=== PATIENT | female | born 1990 | race Two or more races ===

== ENCOUNTER 2020-10-10 17:12 | Emergency (ER) | payer SELFPAY ==
[~2020-10-10] VITALS: Ht 160 cm; Wt 94.7 kg
[2020-10-10] MEDS ORDERED: ACETAMINOPHEN 500 MG TABLET PO ONE (19:00)
[2020-10-10 19:29] LABS: BASO % 0 % (0-3); EOS % 0 % (0-3); HEMATOCRIT 32.3 % (36.0-47.0); HEMOGLOBIN 10.8 g/dL (12.0-15.5); LYMPH % 19 % (24-48); MEAN CORPUSCULAR HEMOGLOBIN 28 pg (25-35); MEAN CORPUSCULAR HGB CONC 33 g/dL (31-37); MEAN CORPUSCULAR VOLUME 84 fL (79-100); MONO # 0.3 x10^3/uL (0.0-1.1); MONO % 5 % (0-9); NEUT # 4.3 x10^3/uL (1.8-7.7); NEUT % 76 % (31-73); PLATELET COUNT 187 x10^3/uL (140-400); RED BLOOD COUNT 3.83 x10^6/uL (3.50-5.40); RED CELL DISTRIBUTION WIDTH 15.3 % (11.5-14.5); WHITE BLOOD COUNT 5.7 x10^3/uL (4.0-11.0)
[2020-10-10 19:30] LABS: INFLUENZA A PATIENT NEGATIVE (NEGATIVE); INFLUENZA B PATIENT NEGATIVE (NEGATIVE)
[2020-10-10 19:38] LABS: CALCIUM 8.3 mg/dL (8.5-10.1); CREATININE 0.7 mg/dL (0.6-1.0); GFR 97.6; POTASSIUM 3.7 mmol/L (3.5-5.1)
[2020-10-10 19:43] LABS: ALBUMIN 2.2 g/dL (3.4-5.0); ALBUMIN/GLOBULIN RATIO 0.4 (1.0-1.7); TOTAL BILIRUBIN 0.6 mg/dL (0.2-1.0); TOTAL PROTEIN 7.1 g/dL (6.4-8.2)
--- NOTE | 2020-10-10 19:45 | RAD ---
EXAMINATION: XR CHEST 1V CLINICAL HISTORY: Shortness of breath EXAM DATE/TIME: 10/10/2020 7:11 PM COMPARISON: None FINDINGS: Lines, Tubes, and Devices: None. Cardiomediastinal Silhouette: Normal heart size. Lungs and Pleura: Pulmonary hypoexpansion with reticular and patchy opacities in the bilateral mid to lower lung zones. No evidence of pleural effusion or pneumothorax. Bones and Soft Tissues: No acute osseous abnormality. IMPRESSION: Bilateral interstitial and alveolar opacities concerning for infection, including atypical or viral p neumonia. Electronically signed by: Baljeet Allen DO (10/10/2020 7:43 PM) [facility]
[2020-10-10 19:56] LABS: CLARITY,URINE CLEAR; COLOR,URINE ORANGE
[2020-10-10 20:05] LABS: BACTERIA,URINE MODERATE /HPF (0-FEW); RBC,URINE 0 /HPF (0-2)
[2020-10-10 20:44] VITALS: BP 95/53
--- NOTE | 2020-10-10 20:58 | PHYS DOC ---
Past Medical History Past Medical History: Other Additional Past Medical Histor: GESTATIONAL DIABETES Past Surgical History: No Surgical History Smoking Status: Never Smoker Alcohol Use: None General Adult EDM: Chief Complaint: MULTIPLE COMPLAINTS HPI: HPI: Patient is a 30 year old female presents to the emergency department complaining of sore throat with cough and fevers at home. Patient states she is currently and due on 18 October 2020. Patient states she has a patient of Dr. Tong. Patient states that she has gestational diabetes and takes Metformin 500 mg nightly. Other than that she only takes as needed Tylenol and a multivitamin. Patient states that her fears she has the Covid virus, patient states she is due to have a Covid virus test tomorrow. Patient denies any chest pains, chest discomfort, abdominal pain, nausea, vomiting, or diarrhea. Patient states she can still feel the baby move and is not worried about the health or wellbeing of the baby at this time. Patient denies any allergies to medications. Patient states that she takes her blood sugars each morning and it was 207 this morning. Patient denies any other physical complaints or physical ailments today. Review of Systems: Review of Systems: 14 body systems of review of systems have been reviewed. See HPI for pertinent positives and negative responses, otherwise all other systems are negative, nonpertinent or noncontributory. Heart Score: Risk Factors: Risk Factors: DM, Current or recent (<one month) smoker, HTN, HLP, family history of CAD, obesity. Risk Scores: Score 0 - 3: 2.5% MACE over next 6 weeks - Discharge Home Score 4 - 6: 20.3% MACE over next 6 weeks - Admit for Clinical Observation Score 7 - 10: 72.7% MACE over next 6 weeks - Early Invasive Strategies Current Medications: Patient reports taking Metformin 500 mg nightly, a multivitamin, Tylenol as ne eded. Current Medications Medications (Trade) Dose Ordered Sig/Mena Start Time Stop Time Status Last Admin Dose Admin Acetaminophen (Tylenol) 1,000 mg 1X ONCE 10/10/20 19:00 10/10/20 19:01 DC 10/10/20 19:08 1,000 MG Allergies: Allergies: Allergies Coded Allergies Type Severity Reaction Last Updated Verified No Known Drug Allergies 10/10/20 No Physical Exam: PE: Constitutional: Well developed, well nourished, no acute distress, non-toxic ap pearance. Patient was anxious during physical examination. HENT: Normocephalic, atraumatic, bilateral external ears normal, oropharynx moist, no oral exudates, nose normal. Eyes: PERRLA, EOMI, conjunctiva normal, no discharge. Neck: Normal range of motion, no tenderness, supple, no stridor. Cardiovascular:Heart rate regular rhythm, no murmur Lungs & Thorax: Bilateral breath sounds clear to auscultation, patient's respiratory rate tachypneic at 28 breaths/min during physical examination. Abdomen: Bowel sounds normal, soft, no tenderness, no masses, no pulsatile masses. Skin: Warm, dry, no erythema, no rash. Back: No tenderness, no CVA tenderness. Extremities: No tenderness, no cyanosis, no clubbing, ROM intact, no edema. Neurologic: Alert and oriented X 3, normal motor function, normal sensory function, no focal deficits noted. Psychologic: Affect normal, judgement normal, mood normal. Current Patient Data: Labs: Laboratory Tests Test 10/10/20 18:40 10/10/20 18:41 10/10/20 18:42 10/10/20 19:00 Influenza Type A Antigen Negative (NEGATIVE) Influenza Type B Antigen Negative (NEGATIVE) Urine Color [place] Urine Clarity Clear Urine pH (<5.0-8.0) Urine Specific [place] 1.025 (1.000-1.030) Urine Protein mg/dL (NEG-TRACE) Urine Glucose (UA) mg/dL (NEG) Urine Ketones (Stick) mg/dL (NEG) Urine Blood (NEG) Urine Nitrite (NEG) Urine Bilirubin (NEG) Urine Urobilinogen Dipstick mg/dL (0.2 mg/dL) Urine Leukocyte Esterase (NEG) Urine RBC 0 /HPF (0-2) Urine WBC 5-10 /HPF (0-4) Urine Squamous Epithelial Cells Mod /LPF Urine Bacteria Moderate /HPF (0-FEW) Urine Mucus Slight /LPF POC Urine HCG, Qualitative Hcg positive (Negative) SARS-CoV-2 Antigen (Rapid) Positive (NEGATIVE) *A Test 10/10/20 19:20 White Blood Count 5.7 x10^3/uL (4.0-11.0) Red Blood Count 3.83 x10^6/uL (3.50-5.40) Hemoglobin 10.8 g/dL (12.0-15.5) L Hematocrit 32.3 % (36.0-47.0) L Mean Corpuscular Volume 84 fL (79-100) Mean Corpuscular Hemoglobin 28 pg (25-35) Mean Corpuscular Hemoglobin Concent 33 g/dL (31-37) Red Cell Distribution Width 15.3 % (11.5-14.5) H Platelet Count 187 x10^3/uL (140-400) Neutrophils (%) (Auto) 76 % (31-73) H Lymphocytes (%) (Auto) 19 % (24-48) L Monocytes (%) (Auto) 5 % (0-9) Eosinophils (%) (Auto) 0 % (0-3) Basophils (%) (Auto) 0 % (0-3) Neutrophils # (Auto) 4.3 x10^3/uL (1.8-7.7) Lymphocytes # (Auto) 1.0 x10^3/uL (1.0-4.8) Monocytes # (Auto) 0.3 x10^3/uL (0.0-1.1) Eosinophils # (Auto) 0.0 x10^3/uL (0.0-0.7) Basophils # (Auto) 0.0 x10^3/uL (0.0-0.2) Sodium Level 135 mmol/L (136-145) L Potassium Level 3.7 mmol/L (3.5-5.1) Chloride Level 102 mmol/L (98-107) Carbon Dioxide Level 20 mmol/L (21-32) L Anion Gap 13 (6-14) Blood Urea Nitrogen 8 mg/dL (7-20) Creatinine 0.7 mg/dL (0.6-1.0) Estimated GFR (Cockcroft-Gault) 97.6 BUN/Creatinine Ratio 11 (6-20) Glucose Level 110 mg/dL (70-99) H Calcium Level 8.3 mg/dL (8.5-10.1) L Total Bilirubin 0.6 mg/dL (0.2-1.0) Aspartate Amino Transferase (AST) 28 U/L (15-37) Alanine Aminotransferase (ALT) 23 U/L (14-59) Alkaline Phosphatase 159 U/L (46-116) H Total Protein 7.1 g/dL (6.4-8.2) Albumin 2.2 g/dL (3.4-5.0) L Albumin/Globulin Ratio 0.4 (1.0-1.7) L Acetone Level Neg (NEG) Laboratory Tests 10/10/20 19:20 Laboratory Tests 10/10/20 19:20 Vital Signs: Vital Signs Date Time Temp Pulse Resp B/P (MAP) Pulse Ox O2 Delivery O2 Flow Rate FiO2 10/10/20 18:52 100.7 132 28 126/70 (88) 97 Room Air 100.7 EKG: EKG: [] Radiology/Procedures: Radiology/Procedures: [] Course & Med Decision Making: Course & Med Decision Making Pertinent Labs and Imaging studies reviewed. (See chart for details) 30-year-old female approximately 38 weeks 6 days presents emergency department with complaints that she might have the Covid virus. A rapid strep, flu swab, Covid test was obtained along with a urine, and serum lab work. Pending results. Patient was given 1 g of Tylenol p.o. for a oral temperature of 100.1. Patient's rapid flu AB was negative, rapid strep A was negative, rapid Covid test was positive. Upon reexamination of the patient, patient now calm no longer tachypneic oral temperature 98.8 oral. Heart rate was initially 113 bpm during the physical examination is now at 90 bpm, patient's respiratory rate now 16 and nonlabored. Patient states that she feels much better. Discussed patient case with [employer] specialist Dr. Tong who stated he knew the patient very well and was sure that he had tested her earlier this week for the Covid 19 virus and she was positive. Discussed with Dr. Tong patient's urinalysis results, Dr. Tong did not recommend starting the patient on any antibiotics, Dr. Tong did not recommend any specific treatment other than COVID-19 virus isolation precautions. Given the discussion and patient case I discussed with Dr. Tong, Dr. Tong felt it was safe for the patient to be discharged home. Dr. Tong stated he would see the patient on October 18 for her 40-week follow-up unless she delivers prior. Discussed with patient Dr. Tong's recommendations, patient gave verbal understanding of discharge home instructions, COVID-19 virus precautions, return to ER if precautions and concerns, patient had no further questions or concerns and was discharged home without incident. Impression: #1 fever #2 tachypnea #3 COVID-19 virus positive #4 discussed COVID-19 virus precautions and concerns #5 discussed COVID-19 virus education #6 38 weeks 6 days Dragon Disclaimer: Ashwini Disclaimer: This electronic medical record was generated, in whole or in part, using a voice recognition dictation system. Departure Departure Impression: Primary Impression: 38 to 41 weeks gestation of Additional Impressions: COVID-19 virus infection Educated about COVID-19 virus infection Advice given about COVID-19 virus infection Fever Qualified Codes: R50.9 - Fever, unspecified Tachypnea Disposition: 01 DC HOME SELF CARE/HOMELESS Condition: IMPROVED Referrals: NO PCP (PCP) Additional Instructions: Please keep your appointments with your [employer] specialist Dr. Tong, return to the emergency department for worsening symptoms or other concerns. You have tested positive for the COVID-19 virus, I have given you instructions attached to this document regarding the COVID-19 virus. Definicin Se le realiz la prueba de deteccin del COVID-19 o se le diagnostic dicha enfermedad. Es kelli infeccin ocasionada por un nuevo tipo de coronavirus. En la mayora de los casos, el COVID-19 provoca sntomas similares a los del resfriado. En algunas personas, puede ocasionar sntomas ms graves, fish problemas respiratorios. No existe un tratamiento para el virus COVID-19. El cuerpo elimina la infeccin con el tiempo. El cuidado personal ayuda a aliviar el malestar. Pasos que debe seguir 1. Cuidados personales Descanse cuando sea necesario. Los hbitos saludables pueden ayudarlo a sentirse mejor. Algunas medidas para lograr cambios incluyen lo siguiente: - Elija alimentos saludables, fish frutas y verduras. Johanna abundante cantidad de agua nacho todo el da. - Duerma raiza por la noche. - Si fuma, intente no hacerlo. Box ayudar a mejorar la respiracin. - Evite el alcohol. 2. Mantenga sanos a los dems El virus puede contagiarse a otras personas. Cada vez que estornuda o tose, se liberan gotitas. Las gotitas pueden entrar en la boca, la nariz o los ojos de las personas que se encuentran cerca de usted y ocasionar la infeccin. Para reducir las probabil idades de contagiar el virus COVID-19 a otros, tenga en cuenta lo siguiente: - Qudese en casa el tiempo que el mdico se lo indique. Es posible que deba quedarse en casa hasta que la enfermedad desaparezca. Salga nicamente para recibir atencin mdica o en bull de urgencia. - Evite las reas pblicas, los eventos o el transporte pblico. No reanude las actividades laborales o escolares hasta que el mdico lo autorice. - Llame previamente si necesita asistir a un centro mdico. Avise que es posible que haya contrado COVID-19. Box ayudar a que le indiquen adonde debe dirigirse. Cunningham bin pueden pedirle que use kelli mscara facial cuando vaya al consultorio. Si llama a los servicios de asistencia mdica de urgencias, avseles que es posible que haya contrado COVID-19. Mientras est en casa: - Evite el contacto directo con otras personas. Mantngase a kelli distancia aproximada de 2 metros. Si es posible, pasen la mayor parte del tiempo en arellano separadas. - Use kelli mscara facial si estar en contacto directo con otras personas, por ejemplo, si compartir kelli habitacin o un vehculo. - Pida a alguien que limpie las superficies comunes de la casa. Limpie picaportes, mesadas y lavamanos con limpiadores domsticos todos los dhaliwal. - Al toser o estornudar, cbrase con un pauelo de papel. Despus de usarlo, deschelo de inmediato. Si no tiene un pauelo de papel, tosa o estornude en el pliegue del codo. - Lvese las deepti con frecuencia. Lvese las deepti despus de estornudar o toser. Lvese con agua y jabn nacho, al menos, 20 segundos. Si no dispone de agua y jabn, use un limpiador de deepti a base de alcohol. - No cocine para otros. Evite compartir objetos personales, fish tenedores, cucharas o cepillos de dientes. - Mientras est enfermo, evite el contacto directo con las mascotas. No hay indicios de si el virus se transmite a las mascotas. Esta es kelli medida de seguridad que debe tenerse en cuenta hasta que se sepa ms acerca de anand virus. El aislamiento puede ser frustrante. La interaccin social puede ayudar. Mantngase en contacto con amigos y familiares por telfono u otros medios tecnolgicos. Puede interactuar con otras personas en el hogar, jean marie mantenga kelli distancia may de aproximadamente 2 metros. Seguimiento Las pruebas para confirmar la presencia del COVID-19 pueden demorar algunos dhaliwal. Es posible que deba seguir los pasos mencionados anteriormente hasta que estn los resultados de las pruebas. Lo llamarn del consultorio mdico para saber si ritchie habido algn cambio en johnson samuel. Tambin le avisarn cuando pueda volver a estar cerca de otras personas. Problemas a los que debe estar atento Comunquese con el mdico si no se recupera segn lo previsto o si tiene problemas fish los siguientes: - Dificultad para respirar - Dolor de pecho - Empeoramiento de los sntomas Si tamar que tiene kelli urgencia, llame a los servicios de asistencia mdica de urgencias de inmediato. As taken from [facility] EMERGENCY DEPARTMENT GENERAL DISCHARGE INSTRUCTIONS Thank you for coming to [facility] Emergency Department (ED) today and trusting us with you care. We trust that you had a positive experience in our Emergency Department. If you wish to speak to the department management, you may call the Director at [phone]. YOUR FOLLOW UP INSTRUCTIONS ARE FOLLOWS: 1. Do you have a private Doctor? If you do not have a private doctor, please ask for a resource list of physicians or clinics that may be able to assist you with follow up care. 2. The Emergency Physicain has interpreted your x-rays. The X-Ray specialist will also review them. If there is a change in the findings, you will be notified in 48 hours when at all possible. 3. A lab test or culture has been done, your results will be reviewed and you will be notified if you need a change in treatment. ADDITIONAL INSTRUCTIONS AND INFORMATION: 1. Your care today has been supervised by a physician who is specially trained in emergency care. Many problems require more than one evaluation for a complete diagnosis and treatment. We recommend that you schedule your follow up appointment as recommended to ensure complete treatment of you illness or injury. If you are unable to obtain follow up care and continue to have a problem, or if your condition worsens, we recommend that you return to the ED. 2. We are not able to safely determine your condition over the phone nor are we able to give sound medical advice over the phone. For these safety reasons, if you call for medical advice we will ask you to come to the ED for further evaluation. 3. If you have any questions regarding these discharge instructions please call the ED at [phone]. SAFETY INFORMATION: In the interest of safety, wellness, and injury prevention; we encourage you to wear your sealbelt, if you smoke; quite smoking, and we encourage family to use a protective helmet for bicycling and other sporting events that present an increased risk for head injury. IF YOUR SYMPTOMS WORSEN OR NEW SYMPTOMS DEVELOP, OR YOU HAVE CONCERNS ABOUT YOUR CONDITION; OR IF YOUR CONDITION WORSENS WHILE YOU ARE WAITING FOR YOUR FOLLOW UP APPOINTMENT; EITHER CONTACT YOUR PRIMARY CARE DOCTOR, THE PHYSICIAN WHOSE NAME AND NUMBER YOU WERE GIVEN, OR RETURN TO THE ED IMMEDIATELY. REILLY ROMAN APRN Oct 10, 2020 20:58
== END 2020-10-10 21:21 | disposition home or self-care (01) ==
LOC: ER 17:12
DX: O98.513 Other viral diseases complicating pregnancy, third trimester (principal); U07.1 COVID-19; R06.82 Tachypnea, not elsewhere classified; R50.9 Fever, unspecified; Z3A.38 38 weeks gestation of pregnancy
CPT/HCPCS: 36415; 71045; 80053; 81001; 81025; 82010; 85025; 87070; 87086; 87426; 87804; 87880; 99284

== ENCOUNTER 2020-10-20 07:47 | Inpatient (IN) | payer MEDICAID, OTHER ==
[~2020-10-20] VITALS: Ht 170.2 cm; Wt 91.0 kg
[2020-10-20] MEDS ORDERED: IV RINGERS,LACTATED 1000ML 1,000 ML IV SCH ×2 (08:00→09:00)
[2020-10-20 08:44] LABS: BILIRUBIN,URINE NEGATIVE (NEG); CLARITY,URINE TURBID; COLOR,URINE YELLOW; NITRITE,URINE NEGATIVE (NEG); PH,URINE 7.5 (<5.0-8.0); PROTEIN,URINE 30 mg/dL (NEG-TRACE)
[2020-10-20 08:55] LABS: BACTERIA,URINE FEW /HPF (0-FEW)
[2020-10-20 08:56] LABS: AMNIO PT POSITIVE
[2020-10-20] MEDS ORDERED: LIDOCAINE 1% PF 30 ML VIAL. INJ PRN (09:00)
[2020-10-20] MEDS ORDERED: 0.9 % SODIUM CHLORIDE 10 ML DISP.SYRIN. IV PRN ×2 (09:00→13:00)
[2020-10-20] MEDS ORDERED: BUTORPHANOL 2 MG/ML VIAL. IVP PRN ×2 (09:00)
[2020-10-20] MEDS ORDERED: TERBUTALINE 1 MG/ML VIAL. SQ PRN (09:00)
[2020-10-20] MEDS ORDERED: ACETAMINOPHEN 325 MG TABLET. PO PRN ×2 (09:00→13:00)
[2020-10-20] MEDS ORDERED: OXYTOCIN 30 UNIT/500 ML PREMIX 500 ML IV PRN ×3 (09:00→13:00)
[2020-10-20 09:17] VITALS: BP 110/83
--- NOTE | 2020-10-20 10:05 | PDOC1 ---
[employer] [employer] H&P Date of Admission: Date of Admission: Oct 20, 2020 at 07:47 History of Present Illness: EDC: 10/24/20 LMP:01/18/20 30y @39.3 by L=20 presents to L&D with LOF. The pt was confirmed ruptured. The pts has been complicated by A2DM which she has been on Metformin 500mg qhs with relatively good control. She was also found to have polyhydramnios. 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 Alert and oriented. HEENT: Head normocephalic, atraumatic. NECK: Supple LUNGS: Clear to auscultation. HEART: RRR, S1, S2 present, pulses intact ABDOMEN: Soft, positive bowel sounds. EXTREMITIES: No cyanosis or edema. NEUROLOGIC: Normal speech, normal tone PSYCHIATRIC: Normal affect, normal mood. SKIN: No ulceration. FHT: 140's +acels/no decels/mLTV [place]: 2-4 min SVE: 5/75/-3 Labs: Laboratory Tests Test 10/20/20 08:05 10/20/20 08:23 10/20/20 09:20 Urine Collection Type Unknown Urine Color Yellow Urine Clarity Turbid Urine pH 7.5 (<5.0-8.0) Urine Specific [place] 1.020 (1.000-1.030) Urine Protein 30 mg/dL (NEG-TRACE) Urine Glucose (UA) Negative mg/dL (NEG) Urine Ketones (Stick) Negative mg/dL (NEG) Urine Blood Small (NEG) Urine Nitrite Negative (NEG) Urine Bilirubin Negative (NEG) Urine Urobilinogen Dipstick 1.0 mg/dL (0.2 mg/dL) Urine Leukocyte Esterase Small (NEG) Urine RBC 1-2 /HPF (0-2) Urine WBC 1-4 /HPF (0-4) Urine Squamous Epithelial Cells Mod /LPF Urine Bacteria Few /HPF (0-FEW) Urine Mucus Mod /LPF Amniotic Fluid Swab Test Positive Glucose Level 98 mg/dL (70-99) Laboratory Tests 10/20/20 09:20 Laboratory Tests 10/20/20 09:20 Assessment & Plan: A/P 30y @39.3 by L=20 1.) SROM will augment if does not progress 2.) A2DM on metformin 500 qhs 3.) Polyhydramnios 4.) Possible IUGR - nml growth 5.) TDAP given 07/25/20 5.) Flu given 07/25/20 6.) Fetus cat I FHT 7.) GBS neg 8.) DPS consent signed 09/08/20 REILLY LEMOS MD Oct 20, 2020 10:05
[2020-10-20 10:28] LABS: BASO % 1 % (0-3); EOS # 0.1 x10^3/uL (0.0-0.7); EOS % 1 % (0-3); HEMOGLOBIN 11.2 g/dL (12.0-15.5); LYMPH # 1.5 x10^3/uL (1.0-4.8); LYMPH % 28 % (24-48); MEAN CORPUSCULAR HEMOGLOBIN 28 pg (25-35); MEAN CORPUSCULAR HGB CONC 33 g/dL (31-37); MEAN CORPUSCULAR VOLUME 84 fL (79-100); MONO # 0.4 x10^3/uL (0.0-1.1); MONO % 8 % (0-9); NEUT # 3.3 x10^3/uL (1.8-7.7); NEUT % 62 % (31-73); PLATELET COUNT 228 x10^3/uL (140-400); RED BLOOD COUNT 4.05 x10^6/uL (3.50-5.40); RED CELL DISTRIBUTION WIDTH 15.8 % (11.5-14.5); WHITE BLOOD COUNT 5.3 x10^3/uL (4.0-11.0)
[2020-10-20] MEDS ORDERED: ROPIVacaine 0.2% PF 10 ML VIAL. ONE ×2 (11:42→12:00)
[2020-10-20] MEDS ORDERED: ONDANSETRON PF 4 MG/2 ML VIAL. IV PRN (11:45)
[2020-10-20] MEDS ORDERED: IV RINGERS,LACTATED 1000ML 1,000 ML IV ONE (11:45)
[2020-10-20] MEDS ORDERED: L&D EPIDURAL SYRINGE 50 ML EPID PRN (11:45)
[2020-10-20] MEDS ORDERED: ePHEDrine PF IN SALINE 50 MG/10 ML SYRINGE. IV PRN (11:45)
[2020-10-20] MEDS ORDERED: NALOXONE 0.4 MG/ML VIAL. IV PRN (11:45)
[2020-10-20] MEDS ORDERED: fentaNYL PF VIAL 100 MCG/2 ML VIAL EPID ONE (11:45)
[2020-10-20] MEDS ORDERED: L&D EPIDURAL 50 ML SYRINGE. ONE (12:00)
--- NOTE | 2020-10-20 12:55 | PDOC ---
VAGINAL DELIVERY DATE DATE: 10/20/20 TIME: 12:55 TIME Patient delivered a viable male infant over intact perineum at 1246. Wt 8 lb 1 oz. Apgars 8/9. Placenta delivered spontaneously, intact with 3VC. No lacerations noted. Good hemostasis noted. 20 U of Pit given with IVF. EBL 200cc. WEIGHT Weight [ ] REILLY LEMOS MD Oct 20, 2020 12:55
[2020-10-20] MEDS ORDERED: MMR per PROTOCOL. MC PRN (13:00)
[2020-10-20] MEDS ORDERED: ZOLPIDEM 5 MG TABLET. PO PRN (13:00)
[2020-10-20] MEDS ORDERED: PHENYLEPH/MINERAL OIL/PETROLAT RECTAL OINTMENT TUBE. RC PRN (13:00)
[2020-10-20] MEDS ORDERED: MAGNESIUM HYDROXIDE 2,400 MG/30 ML ORAL.SUSP. PO PRN (13:00)
[2020-10-20] MEDS ORDERED: MAG HYDROX/ALUMINUM HYD/SIMETH 30 ML ORAL.SUSP PO PRN (13:00)
[2020-10-20] MEDS ORDERED: diphenhydrAMINE HCL 25 MG CAPSULE PO PRN (13:00)
[2020-10-20] MEDS ORDERED: TDaP (Adacel) per PROTOCOL. MC PRN (13:00)
[2020-10-20] MEDS ORDERED: SIMETHICONE 80 MG TAB.CHEW PO PRN (13:00)
[2020-10-20] MEDS ORDERED: BENZOCAINE 20% TOPICAL AEROSOL SPRAY 57GM CAN. TP PRN (13:00)
[2020-10-20] MEDS ORDERED: HYDROCORTISONE 1% TOPICAL OINTMENT 30GM TUBE. TP PRN (13:00)
[2020-10-20 15:45] VITALS: BP 113/73
[2020-10-20] MEDS: IBUPROFEN 400 MG TABLET. PO PRN (15:49)
[2020-10-20 16:20] VITALS: BP 121/70
--- NOTE | 2020-10-20 16:45 | NUR ---
dr Tong informed that pt does not btl saturday since she is recovering from covid and would like to try for it in 6 weeks
[2020-10-20 17:00] VITALS: BP 113/66
[2020-10-20 19:30] VITALS: BP 113/69
[2020-10-20] MEDS ORDERED: IV NORMAL SALINE 1000ML BAG 1,000 ML IV SCH (19:30)
[2020-10-20] MEDS: oxyCODONE/APAP 5/325 1 TAB TABLET PO PRN (21:36)
[2020-10-21 00:04] VITALS: BP 121/72
[2020-10-21] MEDS: IBUPROFEN 400 MG TABLET. PO PRN (01:55)
[2020-10-21 05:54] VITALS: BP 123/75
[2020-10-21 06:51] LABS: HEMATOCRIT 29.9 % (36.0-47.0); HEMOGLOBIN 9.8 g/dL (12.0-15.5); RED BLOOD COUNT 3.57 x10^6/uL (3.50-5.40); RED CELL DISTRIBUTION WIDTH 15.6 % (11.5-14.5)
[2020-10-21] MEDS ORDERED: IV RINGERS,LACTATED 1000ML 1,000 ML IV SCH (07:00)
[2020-10-21] MEDS ORDERED: LIDOCAINE 1% PF 2 ML VIAL. ID PRN (07:00)
[2020-10-21] MEDS ORDERED: ONDANSETRON PF 4 MG/2 ML VIAL. IV PRN (07:00)
[2020-10-21] MEDS ORDERED: MORPHINE SULFATE 2 MG/ML VIAL. IV PRN (07:00)
[2020-10-21] MEDS ORDERED: PROCHLORPERAZINE 10 MG/2 ML VIAL. IV PRN (07:00)
[2020-10-21] MEDS ORDERED: fentaNYL PF VIAL 100 MCG/2 ML VIAL IV PRN ×2 (07:00)
[2020-10-21] MEDS ORDERED: HYDROmorphone 2 MG/ML VIAL IV PRN (07:00)
[2020-10-21] MEDS: DOCUSATE SODIUM 100 MG CAPSULE. PO PRN ×2 (07:55→20:28)
[2020-10-21] MEDS: PRENATAL MULTIVITAMIN TABLET. PO SCH (07:55)
[2020-10-21] MEDS: FERROUS SULFATE 325 MG TABLET. PO SCH ×2 (08:00→16:57)
[2020-10-21] MEDS ORDERED: DOCU-109 PO (10:19)
[2020-10-21] MEDS ORDERED: IBUP-1060 PO (10:19)
[2020-10-21] MEDS ORDERED: FERR325T14 PO (10:19)
--- NOTE | 2020-10-21 10:35 | PDOC ---
[employer] PROGRESS NOTE Date of Service: DATE: 10/21/20 TIME: 10:34 Subjective: Pt with good pain control. German PO. Voiding. Minimal lochia. Objective: Vital Signs: Vital Signs Date Time Temp Pulse Resp B/P (MAP) Pulse Ox O2 Delivery O2 Flow Rate FiO2 10/20/20 09:17 98.5 94 18 110/83 (92) Room Air 98.5 10/20/20 15:45 98 Vital Signs Date Time Temp Pulse Resp B/P (MAP) Pulse Ox O2 Delivery O2 Flow Rate FiO2 10/21/20 05:54 97.7 73 18 123/75 (91) 97 Room Air 97.7 Labs: Laboratory Tests Test 10/21/20 05:44 10/21/20 06:41 Glucose (Fingerstick) 80 mg/dL (70-99) White Blood Count 7.0 x10^3/uL (4.0-11.0) Red Blood Count 3.57 x10^6/uL (3.50-5.40) Hemoglobin 9.8 g/dL (12.0-15.5) L Hematocrit 29.9 % (36.0-47.0) L Mean Corpuscular Volume 84 fL (79-100) Mean Corpuscular Hemoglobin 27 pg (25-35) Mean Corpuscular Hemoglobin Concent 33 g/dL (31-37) Red Cell Distribution Width 15.6 % (11.5-14.5) H Platelet Count 202 x10^3/uL (140-400) Laboratory Tests 10/21/20 06:41 Laboratory Tests 10/21/20 06:41 Physical Exam: GENERAL: No apparent distress. Alert and oriented. HEENT: Head normocephalic, atraumatic. NECK: Supple LUNGS: Clear to auscultation. HEART: RRR, S1, S2 present, pulses intact ABDOMEN: Soft, positive bowel sounds. EXTREMITIES: No cyanosis or edema. NEUROLOGIC: Normal speech, normal tone PSYCHIATRIC: Normal affect, normal mood. SKIN: No ulceration. FFNT below umb No C/C/E Assessment & Plan: A/P 30y PPD #1 s/p 1.) PP doing well 2.) A2DM fasting nml this am, metformin d/baron 3.) TDAP given 07/25/20 4.) Flu given 07/25/20 5.) Covid pos 10/10/20 rapid neg on admission 6.) DPS would like to wait until further out from Covid and symptoms 7.) Cont PP care REILLY LEMOS MD Oct 21, 2020 10:35
[2020-10-21 13:00] VITALS: BP 114/71
[2020-10-21 17:10] VITALS: BP 109/75
[2020-10-21] MEDS: oxyCODONE/APAP 5/325 1 TAB TABLET PO PRN (20:28)
[2020-10-21 21:30] VITALS: BP 115/78
[2020-10-22] MEDS: IBUPROFEN 400 MG TABLET. PO PRN (00:31)
[2020-10-22 05:01] VITALS: BP 117/68
--- NOTE | 2020-10-22 08:22 | PDOC ---
[employer] PROGRESS NOTE Date of Service: DATE: 10/22/20 TIME: 08:14 Subjective: Pt with good pain control. German PO. Voiding. Minimal lochia. Objective: Vital Signs: Vital Signs Date Time Temp Pulse Resp B/P (MAP) Pulse Ox O2 Delivery O2 Flow Rate FiO2 10/21/20 13:00 97.4 88 18 114/71 (85) 97 Room Air 97.4 Vital Signs Date Time Temp Pulse Resp B/P (MAP) Pulse Ox O2 Delivery O2 Flow Rate FiO2 10/22/20 05:01 98.2 67 18 117/68 (84) Room Air 98.2 10/21/20 21:30 97 Physical Exam: GENERAL: No apparent distress. Alert and oriented. HEENT: Head normocephalic, atraumatic. NECK: Supple LUNGS: Clear to auscultation. HEART: RRR, S1, S2 present, pulses intact ABDOMEN: Soft, positive bowel sounds. EXTREMITIES: No cyanosis or edema. NEUROLOGIC: Normal speech, normal tone PSYCHIATRIC: Normal affect, normal mood. SKIN: No ulceration. FFNT below umb no C/C/E Assessment & Plan: A/P 30y PPD #2 s/p 1.) PP doing well 2.) A2DM metformin d/baron 3.) Anemia - Hgb 11.2 -> 9.8 4.) TDAP given 07/25/20 5.) Flu given 07/25/20 6.) Covid pos 10/10/20 rapid neg on admission, confirmatory still positive, placed back in isolation 7.) DPS would like to wait until further out from Covid and symptoms 8.) D/c (border status) REILLY LEMOS MD Oct 22, 2020 08:22
--- NOTE | 2020-10-22 08:51 | DS ---
DATE OF DISCHARGE: 10/22/2020 ADMISSION DIAGNOSES: 1. Intrauterine at 39 weeks and 3 days by LMP equal to a 20-week ultrasound. 2. Spontaneous rupture of membranes. 3. A2 diabetes. 4. Polyhydramnios. 5. Possible IUGR, but found to be normal growth on level 2 ultrasound. 6. GBS negative. 7. COVID positive on 10/10/2020. DISCHARGE DIAGNOSES: 1. Intrauterine at 39 weeks and 3 days by LMP equal to a 20-week ultrasound. 2. Spontaneous rupture of membranes. 3. A2 diabetes. 4. Polyhydramnios. 5. Possible IUGR, but found to be normal growth on level 2 ultrasound. 6. GBS negative. 7. COVID positive on 10/10/2020. PROCEDURE: Spontaneous vaginal delivery. BRIEF HOSPITAL COURSE: The patient is a 30-year-old 3, para 2-0-0-2, who presented to Labor and Delivery at 39 weeks and 3 days by LMP equal to a 20-week ultrasound with leakage of fluid. The patient was confirmed ruptured. Of note, the patient had had A2 diabetes, which she was taking metformin 500 mg at bedtime with relatively good control. The patient also had been found to have mild polyhydramnios on her most recent ultrasound, but was otherwise asymptomatic. On 10/10, the patient presented to the ER with respiratory symptoms and fever, was found to be positive for COVID. A rapid COVID was performed on the patient on admission, which returned negative. The patient was taken out of isolation, but when her confirmatory test returned, this also returned positive, so the patient was returned back to isolation. Of note, the patient reported that her symptoms began a week prior to her presentation to the ER, but the patient was still having some minor symptoms of COVID at the time of her admission. The patient ultimately needed augmentation for delivery. The patient reached complete and ultimately had a vaginal delivery. See delivery note for full detail. By day #2, the patient was meeting all discharge criteria and was subsequently discharged to boarder status since the baby still had an elevated bilirubin. Of note, the patient's fingerstick post delivery the next morning was normal, so her metformin was discontinued. The patient was also noted to have a hemoglobin of 11.2 on admission and post delivery was found to be 9.8. The patient initially thought that she desired permanent sterilization, but due to her COVID symptoms, the patient was uncomfortable with being put to sleep, but desired to have it performed at a later date, to be discussed at her visit. DISCHARGE INSTRUCTIONS: The patient was told not to lift anything greater than 20 pounds, have pelvic rest for 6 weeks. CALL IF: The patient was to call if she had fevers, chills, nausea, vomiting, abdominal pain or any additional questions or concerns. FOLLOWUP APPOINTMENT: The patient is to follow up in 6 weeks' time for Norma. She was to call for the appointment. DISCHARGE MEDICATIONS: The patient was given a prescription for Motrin 800 mg, 30 pills; ferrous sulfate 325 mg, 30 pills; and Colace 100 mg, 30 pills. REILLY LEMOS MD DR: GOYO/nts JOB#: [id number] / [id number]
[2020-10-22] MEDS: PRENATAL MULTIVITAMIN TABLET. PO SCH (09:34)
[2020-10-22] MEDS: FERROUS SULFATE 325 MG TABLET. PO SCH ×2 (09:34→17:00)
[2020-10-22 10:29] VITALS: BP 108/67
[2020-10-22 15:00] VITALS: BP 117/70
[2020-10-22 18:21] VITALS: BP 107/69
--- NOTE | 2020-10-26 09:33 | PATHOLOGY ---
[facility] Accession Number: [id number] . 01 Material submitted: . placenta - PLACENTA AND CORD . 01 Clinical history: . SPONTANEOUS VAG DELIVERY GESTATIONAL DIABETES . 02 Diagnosis: 471 term placenta of an estimated 39 weeks 3 days gestation with attached and separate segments of umbilical cord: - Chorangiosis, focal. - Peripheral marginal hemorrhage with decidual necrosis and acute inflammation, focal. (SUNDARM:yolie; 10/25/2020) R 10/25/2020 1524 Local . 02 Comment: There is no evidence of an acute chorioamnionitis or villitis. (BLAIR:yolie; 10/25/2020) . 02 Electronically signed: . Hermes Sequeira MD, Pathologist NPI- [id number] . 01 Gross description: . Received in formalin labeled "Escobarmatozo, Estephannie, placenta" is a nelson placenta with attached membranes and umbilical cord. The placental disc measures 17.3 x 16.2 x 4.2 cm. The membranes are cloudy, thickened, and slimy, with the site of membrane rupture 13.5 cm from the placental disc. The membranes have marginal insertion. The umbilical cord measures 19.2 cm in length, 1.2 cm in diameter, contains three vessels and inserts eccentrically, 5.7 cm from the closest placental margin. A separate segment of umbilical cord is present within the container measuring 35.8 cm in length and 1.2 cm in diameter. There are no true knots in the umbilical cord. The trimmed placental weight is 471 grams. The surface is blue-macias with moderate subchorionic fibrin. Amnion nodosum is not present. The amnion is partially detached from the underlying surface. Cysts are not present. The maternal surface has intact cotyledons and no basal hemorrhage. Sectioning through the placental disc reveals no calcifications and one possible peripheral infarct measuring 2.2 cm in greatest dimension, comprising 1% of the placental disc. Chronic Disease Epidemiologist sections are submitted as follows: . A1 proximal and distal umbilical cord A2 membranes, strips A3 housing management representative peripheral placenta A4 housing management representative central placenta A5 additional maternal surface A6 surface adjacent to umbilical cord insertion site [place] [place] [facility] 10/23/2020 0928 Local . 02 Pathologist provided ICD-10: Z3A.39, O24.419 . 02 CPT . 238935 Specimen Comment: Report sent to Specimen Comment: A duplicate report has been generated due to demographic updates. Performed at: 01 [facility] [address] [facility] [address], [place] [id number] MD Benjy Melvin MD Phone: [phone] Performed at: 02 [facility] [address] [place] [address] [id number] MD Hermes Sequeira MD Phone: [phone]
== END 2020-10-22 18:40 | disposition home or self-care (01) | DRG 805 ==
LOC: OBSVTOIN 07:47 → 3 SO LND 07:47 → 3 NORTH 15:45 → UNDODISIN 10-22 18:40
PROVIDERS: ADMIT Obstetrics & Gynecology; ATTEND Obstetrics & Gynecology
PROC: 10E0XZZ Delivery of Products of Conception, External Approach (ICD-10-PCS; principal; 2020-10-20)
DX: O98.52 Other viral diseases complicating childbirth (principal); U07.1 COVID-19; Z37.0 Single live birth; O24.12 Pre-existing type 2 diabetes mellitus, in childbirth; R17 Unspecified jaundice; O40.3XX0 Polyhydramnios, third trimester, not applicable or unspecified; Z3A.39 39 weeks gestation of pregnancy; Z82.49 Family history of ischemic heart disease and other diseases of the circulatory system; Z79.4 Long term (current) use of insulin
CPT/HCPCS: 36415; 81001; 82947; 82962; 84112; 85025; 85027; 86592; 86850; 86900; 86901; 87086; 87426; 88307; G0378; J2590; J2795; J3010; J7120; U0003